=== PATIENT | female | born 1995 | race American Indian/Alaskan Native ===

== ENCOUNTER 2017-12-29 11:40 | Emergency (ER) | payer SELFPAY ==
[2017-12-29 11:53] VITALS: BP 116/70
[2017-12-29 13:27] LABS: HCG Qualitative,Urine Negative (Negative)
[2017-12-29 13:31] LABS: Bacteria,Urine 1+ /HPF (Negative); Bilirubin,Urine NEG (Negative); Blood,Urine NEG (Negative); Color,Urine Amber (Yellow); Mucus,Urine 3+ /HPF; Urobilinogen,Urine < 2.0 mg/dL (<2.0)
--- NOTE | 2017-12-29 13:41 | Emergency Department Report ---
ED Female HPI - General Chief complaint: Urogenital-Female Stated complaint: BURNING URINATION Time Seen by Provider: 12/29/17 13:41 Source: patient Mode of arrival: Ambulatory Limitations: No Limitations - Related Data Allergies Allergy/AdvReac Type Severity Reaction Status Date / Time No Known Allergies Allergy Unverified 12/29/17 11:50 ED Review of Systems ROS: Stated complaint: BURNING URINATION Other details as noted in HPI ED Past Medical Hx - Past Medical History Previous Medical History?: No Additional medical history: Vaginal delivery - Surgical History Past Surgical History?: No - Social History Smoking Status: Current Every Day Smoker Substance Use Type: None ED Physical Exam - General Limitations: No Limitations ED Course Vital Signs 12/29/17 11:48 Temperature 97.6 F Pulse Rate 100 H Respiratory 16 Rate Blood Pressure 116/70 O2 Sat by Pulse 100 Oximetry Critical care attestation.: If time is entered above; I have spent that time in minutes in the direct care of this critically ill patient, excluding procedure time. ED Disposition Condition: Stable Referrals: PRIMARY CARE [Primary Care Provider] - 3-5 Days
--- NOTE | 2017-12-29 13:56 | Emergency Department Report ---
Blank Doc - Documentation Documentation: Patient eloped before interview. UA shows UTI. Patient was called 3 times with no answer. I tried to call patient via phone from what is listed with no answer.
== END 2017-12-29 13:41 | disposition left against medical advice (07) ==
LOC: ED 11:40
DX: R30.0 Dysuria (principal); Z53.21 Procedure and treatment not carried out due to patient leaving prior to being seen by health care provider
CPT/HCPCS: 81001; 81025